=== PATIENT | female | born 1980 | race Caucasian/White ===

== ENCOUNTER 2017-01-08 09:36 | Inpatient (IN) | payer MEDICAID ==
[~2017-01-08] VITALS: Ht 170.2 cm; Wt 75.0 kg
[2017-01-08] MEDS ORDERED: ZOLO100T PO (09:51)
[2017-01-08] MEDS: HALOPERIDOL 5 MG TAB PO SCH ×3 (13:00→21:10)
[2017-01-08] MEDS ORDERED: BUSP15TA47 PO (13:42)
[2017-01-08] MEDS ORDERED: LYRI150C PO (13:42)
[2017-01-08] MEDS ORDERED: MAALOX 30 ML SUSP *UDC PO PRN (14:45)
[2017-01-08] MEDS ORDERED: cloNIDine 0.1 MG TAB PO PRN (14:45)
[2017-01-08] MEDS ORDERED: MOM 30ML SUSPENSION UDC PO PRN (14:45)
[2017-01-08 14:52] VITALS: BP 125/80
[2017-01-08] MEDS: LORazepam 1 MG TAB PO PRN ×2 (15:28→21:10)
[2017-01-08] MEDS: NICOTINE 21MG/24HR 1 EA TRANSDERMAL TD SCH (17:04)
[2017-01-08] MEDS: diphenhydrAMINE 50 MG CAP PO PRN (21:09)
[2017-01-08 21:10] VITALS: BP 133/75
[2017-01-08] MEDS: ACETAMINOPHEN TAB 650MG DOSE (2X325MG) PO PRN (21:10)
[2017-01-08] MEDS: QUEtiapine FUMARATE 100 MG TAB PO PRN (21:10)
[2017-01-09] MEDS: ACETAMINOPHEN TAB 650MG DOSE (2X325MG) PO PRN ×2 (06:40→20:54)
[2017-01-09 07:02] VITALS: BP 113/66
[2017-01-09] MEDS: NICOTINE 21MG/24HR 1 EA TRANSDERMAL TD SCH (09:20)
[2017-01-09] MEDS: HALOPERIDOL 5 MG TAB PO SCH ×4 (09:20→20:54)
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
[2017-01-09] MEDS: LORazepam 1 MG TAB PO PRN ×2 (10:37→17:07)
[2017-01-09] MEDS: SERTRALINE HCL 50 MG TAB PO SCH (11:09)
[2017-01-09] MEDS: MUPIROCIN 2% OINT 22 GM TUBE TOP SCH ×2 (12:11→20:53)
[2017-01-09 12:29] LABS: MEAN CORPUSCULAR HEMOGLOBIN 33.2 pg (27.0-33.0); MEAN CORPUSCULAR HGB CONC 34.9 g/dl (32.0-36.5); RED CELL DISTRIBUTION WIDTH 12.6 % (11.5-14.5); WHITE BLOOD COUNT 8.2 K/mm3 (4.0-10.0)
[2017-01-09 13:06] LABS: ALBUMIN 4.4 GM/DL (3.2-5.2); ALBUMIN/GLOBULIN RATIO 1.19 (1.00-1.93); ALKALINE PHOSPHATASE 66 U/L (45-117); ALT/SGPT 180 U/L (12-78); ANION GAP 8 MEQ/L (8-16); AST/SGOT 33 U/L (15-37); BILIRUBIN,TOTAL 0.4 MG/DL (0.2-1.0); BLOOD UREA NITROGEN 21 MG/DL (7-18); CARBON DIOXIDE LEVEL 26 MEQ/L (21-32); CHLORIDE LEVEL 105 MEQ/L (98-107); CREATININE FOR GFR 0.81 MG/DL (0.55-1.02); GLOMERULAR FILTRATION RATE > 60.0 (>60); GLUCOSE, FASTING 118 MG/DL (70-105); SODIUM LEVEL 139 MEQ/L (136-145); TOTAL PROTEIN 8.1 GM/DL (6.4-8.2)
[2017-01-09] MEDS: IBUPROFEN 800 MG TAB PO PRN ×2 (15:09→20:54)
[2017-01-09] MEDS: diphenhydrAMINE 50 MG CAP PO PRN (16:07)
[2017-01-09] MEDS: NICOTINE POLACRILEX 2 MG GUM PO PRN (16:24)
[2017-01-09 18:00] VITALS: BP 124/74
[2017-01-09] MEDS: QUEtiapine FUMARATE 100 MG TAB PO PRN (20:53)
[2017-01-10 06:33] VITALS: BP 117/59
[2017-01-10] MEDS: NICOTINE POLACRILEX 2 MG GUM PO PRN (07:53)
[2017-01-10 08:04] LABS: MEAN CORPUSCULAR HEMOGLOBIN 32.8 pg (27.0-33.0); MEAN CORPUSCULAR HGB CONC 34.5 g/dl (32.0-36.5); RED CELL DISTRIBUTION WIDTH 12.6 % (11.5-14.5); WHITE BLOOD COUNT 8.2 K/mm3 (4.0-10.0)
[2017-01-10] MEDS: LORazepam 1 MG TAB PO PRN (08:24)
[2017-01-10 08:25] LABS: ALBUMIN 4.3 GM/DL (3.2-5.2); ALBUMIN/GLOBULIN RATIO 1.19 (1.00-1.93); ALKALINE PHOSPHATASE 56 U/L (45-117); ALT/SGPT 131 U/L (12-78); ANION GAP 11 MEQ/L (8-16); AST/SGOT 20 U/L (15-37); BILIRUBIN,TOTAL 0.5 MG/DL (0.2-1.0); BLOOD UREA NITROGEN 23 MG/DL (7-18); CALCIUM LEVEL 9.2 MG/DL (8.5-10.1); CARBON DIOXIDE LEVEL 23 MEQ/L (21-32); CHLORIDE LEVEL 107 MEQ/L (98-107); CREATININE FOR GFR 0.78 MG/DL (0.55-1.02); GLOMERULAR FILTRATION RATE > 60.0 (>60); GLUCOSE, FASTING 99 MG/DL (70-105); POTASSIUM SERUM 4.4 MEQ/L (3.5-5.1); SODIUM LEVEL 141 MEQ/L (136-145); TOTAL PROTEIN 7.9 GM/DL (6.4-8.2)
[2017-01-10] MEDS: HALOPERIDOL 5 MG TAB PO SCH (08:25)
[2017-01-10] MEDS: MUPIROCIN 2% OINT 22 GM TUBE TOP SCH (08:25)
[2017-01-10] MEDS: SERTRALINE HCL 50 MG TAB PO SCH (08:25)
[2017-01-10] MEDS: IBUPROFEN 800 MG TAB PO PRN (08:25)
[2017-01-10] MEDS ORDERED: QUET1TAB8 PO (10:53)
[2017-01-10] MEDS ORDERED: NICO2GUM62 PO (10:53)
[2017-01-10] MEDS ORDERED: SERT50TA PO (10:53)
[2017-01-10] MEDS ORDERED: MUPI2OI TOP (10:53)
[2017-01-10] MEDS ORDERED: LORA1TAB12 PO (10:57)
[2017-01-10] MEDS: diphenhydrAMINE 50 MG CAP PO PRN (12:36)
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
== END 2017-01-10 13:05 | disposition home or self-care (01) | DRG 755 ==
LOC: M ED 09:36 → M ED INP 13:16 → M PSY 14:50
PROVIDERS: ADMIT Family Medicine; ATTEND Psychiatry & Neurology Psychiatry
DX: F43.10 Post-traumatic stress disorder, unspecified (principal); F60.3 Borderline personality disorder; Z79.899 Other long term (current) drug therapy; F17.200 Nicotine dependence, unspecified, uncomplicated; D72.829 Elevated white blood cell count, unspecified

== ENCOUNTER 2017-11-12 01:29 | Inpatient (IN) | payer OTHER, MEDICAID ==
[2017-11-12 02:41] LABS: HEMATOCRIT 35.3 % (36.0-47.0); HEMOGLOBIN 12.1 g/dl (12.0-15.5); MEAN CORPUSCULAR HEMOGLOBIN 31.8 pg (27.0-33.0); MEAN CORPUSCULAR HGB CONC 34.3 g/dl (32.0-36.5); MEAN CORPUSCULAR VOLUME 92.7 fl (80.0-96.0); PLATELET COUNT, AUTOMATED 195 10^3/uL (150-450); RED BLOOD COUNT 3.81 10^6/uL (4.00-5.40); RED CELL DISTRIBUTION WIDTH 13.4 % (11.5-14.5); WHITE BLOOD COUNT 7.9 10^3/uL (4.0-10.0)
[2017-11-12 02:56] LABS: CONTROL LINE HCG INT CTR LINE PRESENT; HCG, SERUM QUALITATIVE NEGATIVE (NEGATIVE)
[2017-11-12 03:03] LABS: AMPHETAMINES LEVEL URINE NEGATIVE (NEGATIVE); BARBITURATES URINE NEGATIVE (NEGATIVE); BENZODIAZEPINES URINE POSITIVE (NEGATIVE); CANNABINOIDS URINE NEGATIVE (NEGATIVE); COCAINE METABOLITE URINE NEGATIVE (NEGATIVE); METHADONE URINE NEGATIVE (NEGATIVE); OPIATES URINE POSITIVE (NEGATIVE); PHENCYCLIDINE URINE NEGATIVE (NEGATIVE)
[2017-11-12 03:12] LABS: ACETAMINOPHEN LEVEL 5.3 UG/ML (10.0-30.0); ALBUMIN 3.5 GM/DL (3.2-5.2); ALBUMIN/GLOBULIN RATIO 1.17 (1.00-1.93); ALKALINE PHOSPHATASE 54 U/L (45-117); ALT/SGPT 88 U/L (12-78); ANION GAP 9 MEQ/L (8-16); AST/SGOT 27 U/L (7-37); BILIRUBIN,DIRECT < 0.1 MG/DL (0.0-0.2); BILIRUBIN,TOTAL 0.1 MG/DL (0.2-1.0); BLOOD UREA NITROGEN 13 MG/DL (7-18); CALCIUM LEVEL 9.2 MG/DL (8.5-10.1); CARBON DIOXIDE LEVEL 27 MEQ/L (21-32); CHLORIDE LEVEL 106 MEQ/L (98-107); CREATININE FOR GFR 0.67 MG/DL (0.55-1.30); ETHYL ALCOHOL (ETHANOL) 0.006 % (0.000-0.010); GLOMERULAR FILTRATION RATE > 60.0 (>60); GLUCOSE, FASTING 101 MG/DL (70-100); POTASSIUM SERUM 4.1 MEQ/L (3.5-5.1); SALICYLATE LEVEL 4.5 MG/DL (5.0-30.0); SODIUM LEVEL 142 MEQ/L (136-145); THYROID STIMULATING HORMONE 0.687 uIU/ML (0.358-3.740); TOTAL PROTEIN 6.5 GM/DL (6.4-8.2)
[2017-11-12] MEDS ORDERED: ACETAMINOPHEN TAB 650MG DOSE (2X325MG) PO (03:45)
[2017-11-12] MEDS ORDERED: MOM 30ML SUSPENSION UDC PO (03:45)
[2017-11-12] MEDS ORDERED: MAALOX 30 ML SUSP *UDC PO (03:45)
[2017-11-12] MEDS: VENLAFAXINE **XR** 75MG CAPSULE PO (12:28)
[2017-11-12] MEDS: hydrOXYzine 50 MG TAB PO ×2 (12:29→19:54)
[2017-11-12] MEDS: NICOTINE POLACRILEX 2 MG GUM PO ×3 (12:54→21:09)
[2017-11-12] MEDS: traZODone 50 MG TAB PO (21:09)
[2017-11-12] MEDS: GABAPENTIN 300 MG CAP PO (21:09)
[2017-11-12] MEDS: PRAZOSIN 1 MG CAP PO (21:09)
[2017-11-13 07:44] LABS: ALBUMIN 3.6 GM/DL (3.2-5.2); ALBUMIN/GLOBULIN RATIO 1.16 (1.00-1.93); ALKALINE PHOSPHATASE 39 U/L (45-117); ALT/SGPT 72 U/L (12-78); ANION GAP 7 MEQ/L (8-16); AST/SGOT 20 U/L (7-37); BILIRUBIN,TOTAL 0.3 MG/DL (0.2-1.0); BLOOD UREA NITROGEN 14 MG/DL (7-18); CALCIUM LEVEL 8.7 MG/DL (8.5-10.1); CARBON DIOXIDE LEVEL 29 MEQ/L (21-32); CHLORIDE LEVEL 106 MEQ/L (98-107); GLOMERULAR FILTRATION RATE > 60.0 (>60); GLUCOSE, FASTING 103 MG/DL (70-100); POTASSIUM SERUM 4.3 MEQ/L (3.5-5.1); SODIUM LEVEL 142 MEQ/L (136-145); TOTAL PROTEIN 6.7 GM/DL (6.4-8.2)
[2017-11-13] MEDS: hydrOXYzine 50 MG TAB PO ×2 (08:45→13:45)
[2017-11-13] MEDS: VENLAFAXINE **XR** 75MG CAPSULE PO (08:45)
[2017-11-13] MEDS: NICOTINE POLACRILEX 2 MG GUM PO ×2 (08:45→12:58)
[2017-11-13 10:40] LABS: HEPATITIS B SURFACE ANTIGEN NEGATIVE (NEGATIVE)
[2017-11-13 11:08] LABS: HEPATITIS B CORE ANTIBODY IGM NEGATIVE (NEGATIVE)
[2017-11-13 11:09] LABS: HEPATITIS A ANTIBODY IGM NEGATIVE (NEGATIVE)
== END 2017-11-13 14:00 | disposition home or self-care (01) | DRG 755 ==
LOC: M PSY 11-13 06:50 → M ED 01:29 → M ED INP 03:43 → M PSY 04:20
PROVIDERS: Psychiatry & Neurology Psychiatry
DX: F43.10 Post-traumatic stress disorder, unspecified (principal); F32.9 Major depressive disorder, single episode, unspecified; F17.210 Nicotine dependence, cigarettes, uncomplicated; R74.0 Nonspecific elevation of levels of transaminase and lactic acid dehydrogenase [LDH]; M54.9 Dorsalgia, unspecified; Z62.811 Personal history of psychological abuse in childhood; Z62.810 Personal history of physical and sexual abuse in childhood; Z79.899 Other long term (current) drug therapy

== ENCOUNTER 2018-10-10 16:59 | Emergency (ER) | payer OTHER ==
[~2018-10-10] VITALS: Ht 157.5 cm; Wt 69.1 kg
[~2018-10-10 16:59] MED LIST: ALPR0.5T3 PO; BUSP15TA47 PO; GABA-843 PO; HYDRO50TAB PO; LORA1TAB12 PO; LYRI150C PO; MINI1CAP PO; MUPI2OI TOP; NICO2GUM62 PO; OLAN2.5T25 PO; QUET1TAB8 PO; SERT-141 PO; TRAZO50TA PO; VENL75CA47 PO; VITMTA PO; ZOLO100T PO; ZOLP5TAB PO
[2018-10-10 19:23] VITALS: BP 130/85
== END 2018-10-10 19:25 | disposition home or self-care (01) ==
LOC: M ED 16:59
DX: T40.4X1A Poisoning by other synthetic narcotics, accidental (unintentional), initial encounter (principal); Y92.9 Unspecified place or not applicable; Y93.9 Activity, unspecified; F41.9 Anxiety disorder, unspecified; F43.10 Post-traumatic stress disorder, unspecified; F31.9 Bipolar disorder, unspecified; G89.29 Other chronic pain; M54.9 Dorsalgia, unspecified; Z72.0 Tobacco use; Z79.899 Other long term (current) drug therapy